=== PATIENT | female | born 1985 | race African-American/Black ===

== ENCOUNTER 2017-07-03 12:48 | Emergency (ER) | payer MEDICAID ==
[~2017-07-03] VITALS: Ht 160 cm; Wt 58.0 kg
[2017-07-03 12:54] VITALS: BP 109/69
== END 2017-07-03 17:08 | disposition left against medical advice (07) ==
LOC: ER 13:27
DX: Z53.21 Procedure and treatment not carried out due to patient leaving prior to being seen by health care provider (principal)